=== PATIENT | male | born 1950 | race Caucasian/White ===

== ENCOUNTER 2021-07-16 09:13 | Observation (INO) | payer MEDICARE ==
[~2021-07-16] VITALS: Ht 177.8 cm; Wt 133.1 kg
[~2021-07-16 09:13] MED LIST: ACET500T68 PO; ACETAMINOPHEN 500 MG TABLET PO PRN; ASPI-630 PO; GABAPENTIN 300 MG CAPSULE. PO PRN; HYDR-2761 PO; HYDROmorphone 2 MG/ML VIAL IVP PRN; IV RINGERS,LACTATED 1000ML 1,000 ML IV SCH; LOSA1TAB25 PO; MORPHINE SULFATE 2 MG/ML INJ. IVP PRN; NAPR220T70 PO; PROCHLORPERAZINE 10 MG/2 ML VIAL. IVP PRN; SERT50TA PO; TRANEXAMIC ACID 1,000 MG in IV NS 50ML -- 1ST BAG INJ ONE; TRANEXAMIC ACID 1,000 MG in IV NS 50ML -- 2ND BAG INJ ONE; TV=100ml MORPHINE 5 MG, KETOROLAC 30 MG, ROPIVacaine 0.5% PF 60 ML, EPINEPH... INT ART ONE; ceFAZolin SODIUM 3 GM in IV D5W 100 ML IV PRN; fentaNYL PF VIAL 100 MCG/2 ML VIAL IVP PRN
[2021-07-16 09:54] VITALS: BP 158/67
[2021-07-16] MEDS ORDERED: MIDAZOLAM HCL/PF 2 MG/2 ML VIAL. ONE (10:09)
[2021-07-16] MEDS ORDERED: BUPIVACAINE MPF 0.5% 30 ML VIAL. ONE (10:10)
[2021-07-16] MEDS ORDERED: DEXAMETHASONE SOD PHOS 4 MG/ML VIAL ONE (10:27)
[2021-07-16] MEDS ORDERED: LIDOCAINE 2% PF 5 ML VIAL. ONE (10:27)
[2021-07-16] MEDS ORDERED: PROPOFOL 10 MG/ML (20ML) VIAL. IV ONE (10:27)
[2021-07-16] MEDS ORDERED: ROCURONIUM 50 MG/5 ML VIAL. ONE (10:28)
[2021-07-16] MEDS ORDERED: fentaNYL PF VIAL 100 MCG/2 ML VIAL ONE ×2 (10:56→14:14)
[2021-07-16] MEDS ORDERED: PHENYLEPHRINE in 0.9% NACL PF 1 MG/10 ML SYRINGE. IV ONE (12:01)
[2021-07-16] MEDS ORDERED: ePHEDrine PF IN SALINE 50 MG/10 ML SYRINGE. IV ONE (12:28)
[2021-07-16] MEDS ORDERED: ONDANSETRON PF 4 MG/2 ML VIAL. ONE (12:54)
[2021-07-16] MEDS ORDERED: NEOSTIGMINE METHYLSULFATE 5 MG/5 ML SYRINGE. ONE (12:54)
[2021-07-16] MEDS ORDERED: VANCOMYCIN 1 GM VIAL. ONE (13:10)
[2021-07-16] MEDS ORDERED: MORPHINE SULFATE 2 MG/ML INJ. ONE (14:14)
[2021-07-16] MEDS: IV NORMAL SALINE 1000ML BAG 1,000 ML IV SCH (14:15)
[2021-07-16] MEDS ORDERED: 0.9 % SODIUM CHLORIDE 10 ML DISP.SYRIN. IV PRN (14:15)
[2021-07-16] MEDS ORDERED: ZOLPIDEM 5 MG TABLET. PO PRN (14:15)
[2021-07-16] MEDS ORDERED: DEXTROSE 50% 25 GM / 50ML DISP.SYRIN. IV PRN (14:15)
[2021-07-16] MEDS ORDERED: oxyCODONE/APAP 5/325 1 TAB TABLET PO PRN (14:15)
[2021-07-16] MEDS ORDERED: traMADol 50 MG TABLET PO PRN (14:15)
[2021-07-16] MEDS ORDERED: PROCHLORPERAZINE 5 MG TABLET. PO PRN (14:15)
[2021-07-16] MEDS ORDERED: CALCIUM CARBONATE 500 MG TAB.CHEW PO PRN (14:15)
[2021-07-16] MEDS ORDERED: NALOXONE 0.4 MG/ML VIAL. IV PRN (14:15)
[2021-07-16] MEDS ORDERED: oxyCODONE/APAP 7.5/325 1 TAB TABLET PO PRN (14:15)
[2021-07-16] MEDS ORDERED: ACETAMINOPHEN 325 MG TABLET. PO PRN (14:15)
[2021-07-16] MEDS: fentaNYL PF VIAL 100 MCG/2 ML VIAL IVP PRN ×2 (14:25→14:52)
[2021-07-16] MEDS: MORPHINE SULFATE 2 MG/ML INJ. IVP PRN ×3 (14:30→17:48)
--- NOTE | 2021-07-16 14:30 | PDOC4 ---
Operative Note Operative Note Date of surgery: 07/16/2021 Preoperative diagnosis: Displaced four-part intra-articular right proximal humerus fracture, minimally displaced right radial neck fracture Postoperative diagnosis: Same with head splitting four-part intra-articular right proximal humerus fracture and good stability of radial neck fracture Operative procedure: Right reverse shoulder arthroplasty for fracture, open treatment of right radial neck fracture Surgeon: Eladia Director Of Optimization: Douglas Luna wet process miller head assistant Anesthesia General plus scalene block Estimated blood loss: 100 cc Complications: None Operative indications: Please see my orthopedic clinic note for detailed operative indications and note that we covered the severity of the fracture the plan of reverse shoulder arthroplasty as I do not expect the fracture to be amenable to preservation of the humeral head. We had talked about risk benefits postoperative course of reverse shoulder arthroplasty including the possibility of infection instability nerve or blood vessel damage limited motion medical other anesthetic complications among others. We also discussed the possibility of exploration and possible fixation of radial head replacement of the radial head fracture of his right elbow. All his questions were answered he wishes to proceed with surgical evaluation and treatment having given informed consent Operative text: Patient was identified procedure verified patient placed in the supine position on the operating table. After adequate amounts of general anesthesia plus a pre-existing scalene block were obtained he was placed in the beachchair position all bony prominences were well-padded and the right upper extremity was prepped and draped in standard sterile fashion using the spider arm ontiveros. After timeout was performed patient procedure identified and verified deltopectoral approach was carried out cephalic vein taken laterally bleeding points controlled by electrocautery and he was noted to have significa nt comminution with a head splitting fracture and a small intact fragment of the greater tuberosity with some rotator cuff insertion present. The devascularized fragments of the humeral head were removed glenoid was exposed capsular release carried out and a guidewire placed low centrally drilled and reamed back to bleeding bony tissue and a Rosa trabecular metal standard baseplate with a 15 mm stem was placed and screws were placed into the scapular spine as well as to the base of the coracoid with excellent fixation and locked in place. A 40 mm glenosphere was then impacted into place and reaming carried out to accommodate 170 mm stem by 12 mm diameter which gave good stability. Trial fitting of a stem verified good alignment and a trabecular metal 12 x 170 mm stem was cemented in about 10 degrees version and then trial fit with a 12 mm spacer. 12 mm stacked height was reproduced then by a 9 mm spacer and +3 polyethylene which were preassembled on the back table and tapped in place to engage the Juarez taper and reduced. The attached portion of the greater tuberosity was sutured to the lesser tuberosity fragment and soft tissues with #2 max braid suture obtaining excellent alignment. There irrigation carried out with dilute Betadine solution and normal saline solution. 1 g vancomycin was placed in the joint and fascia closure accomplished with running Vicryl suture subcutaneous closure with Vicryl suture and skin closure with rob. Attention was then turned to the radial neck fracture where a lateral approach was taken to the proximal radius dividing through the extensor mechanism and allowing access to the radial head and neck. Satisfactory open reduction was carried out and the radial neck was noted to be stable after reduction open with full pronation and supination. I elected at this point to forego further fixation and irrigation and closure was accomplished with running Vicryl suture and skin closure with rob. Sterile dressings were then applied patient was placed in a sling and returned to [facility] room in stable condition having tolerated procedure well. Douglas mclain assist was present for the procedure and assisted in patient positioning prepping draping retraction closure and dressings MARY RIVAS MD Jul 16, 2021 14:30
[2021-07-16] MEDS ORDERED: NEOMY/BACITR/POLYMYXIN OINT PACKET. TP ONE ×2 (14:49→15:15)
--- NOTE | 2021-07-16 15:12 | RAD ---
Exam: Right shoulder 2 views INDICATION: Postop TECHNIQUE: AP and outlet views of the right shoulder Comparisons: 07/11/2021 FINDINGS: Right reverse shoulder arthroplasty changes skin rob are seen overlying the shoulder. There is a fracture deformity at the humeral neck again seen. No periprosthetic lucency is seen. IMPRESSION: Shoulder arthroplasty changes as described above Electronically signed by: Florentino Reyes MD (07/16/2021 3:10 PM) SARATH
[2021-07-16] MEDS: HYDROcodone/APAP 10/325 1 TAB TABLET PO PRN ×2 (17:20→23:29)
[2021-07-16] MEDS: FERROUS SULFATE 325 MG TABLET. PO SCH (18:00)
[2021-07-16 18:56] VITALS: BP 169/78
[2021-07-16 19:00] VITALS: BP 144/62
[2021-07-16] MEDS: IV DEXTROSE 5 %-0.45 % NACL 1,000 ML IV SCH (19:09)
[2021-07-16] MEDS: ceFAZolin SODIUM 3 GM in IV DEXTROSE 5% 100ML 100 ML IV SCH (19:10)
[2021-07-16 23:00] VITALS: BP 158/75
[2021-07-17] MEDS: IV DEXTROSE 5 %-0.45 % NACL 1,000 ML IV SCH ×2 (00:15→09:33)
[2021-07-17] MEDS: ceFAZolin SODIUM 3 GM in IV DEXTROSE 5% 100ML 100 ML IV SCH ×2 (00:20→06:00)
[2021-07-17 03:00] VITALS: BP 160/61
[2021-07-17] MEDS ORDERED: MAGNESIUM HYDROXIDE 2,400 MG/30 ML ORAL.SUSP. PO PRN (06:00)
[2021-07-17 07:00] VITALS: BP 156/46
[2021-07-17] MEDS: FERROUS SULFATE 325 MG TABLET. PO SCH (08:06)
[2021-07-17] MEDS: HYDROcodone/APAP 10/325 1 TAB TABLET PO PRN ×3 (08:06→14:43)
[2021-07-17] MEDS: HYDROmorphone 2 MG/ML VIAL IV PRN ×3 (08:08→14:43)
[2021-07-17] MEDS ORDERED: SENNOSIDES/DOCUSATE 8.6/50MG TABLET. PO SCH (09:00)
[2021-07-17] MEDS ORDERED: MULTIVITAMIN with MINERAL TABLET. PO SCH (09:00)
[2021-07-17] MEDS: IV NORMAL SALINE 1000ML BAG 1,000 ML IV SCH (09:33)
[2021-07-17] MEDS ORDERED: hydroCHLOROthiazide 12.5 MG CAPSULE PO SCH (10:00)
[2021-07-17] MEDS ORDERED: LOSARTAN POTASSIUM 50 MG TABLET. PO SCH (10:00)
[2021-07-17 11:00] VITALS: BP 139/62
[2021-07-17] MEDS ORDERED: HYDR-2769 PO (13:41)
--- NOTE | 2021-07-17 13:44 | DISCH ---
DISCHARGE INSTRUCTIONS Condition on Discharge Condition on Discharge: Stable Activity After Discharge Activity Instructions for Disc: Other, see below (May do fine motor use such as eating writing typing no heavy lifting pushing or pulling, no reaching behind back for 2 months postoperatively) Weight Bearing Status after Di: Non weight bearing Diet after Discharge Diet after Discharge: Regular Wound Incision Care Wound/Incision Care: Ice to area for comfort, Do not change dressing (Report if dressing is saturated) Community/Resources/Services Services at Discharge: PT EVALUATE & TREAT (Home exercises of gentle motion pronation supination of wrist and elbow as tolerated and gentle grasping, physical therapy to start after follow-up visit) Contacting the after DC Call your doctor for: Concerns you may have Follow-Up Follow up with: Dr. Montilla or Farzad 10 days MARY MONTILLA MD Jul 17, 2021 13:44
--- NOTE | 2021-07-17 14:25 | DS ---
DATE OF DISCHARGE: 07/17/2021 ORTHOPEDIC DISCHARGE SUMMARY PRINCIPAL DIAGNOSES: 1. A 4-part right proximal humerus fracture, status post reverse shoulder arthroplasty. 2. Open treatment of right radial head fracture. DISPOSITION: Home with self-care. DISPOSITION MEDICATIONS: Include Sabael 10/325 one p.o. q.4 hours p.r.n. pain, dispense #60. Stop previous Tylenol, naproxen and lower dose of hydrocodone. Continue aspirin, losartan, hydrochlorothiazide and sertraline. ACTIVITIES: Fine motor use including gentle grasping of the hand, eating, writing, typing and similar activities. Pronation and supination of the elbow. No reaching around the back until 2 months postoperatively. Sling for comfort, may remove for gentle motion. Report any redness, drainage, fever, chills or other uncontrolled pain or other problems. Follow up with Dr. Montilla or Farzad, 10 days. No physical therapy to start until postoperative check. BRIEF DESCRIPTION OF HOSPITAL COURSE: The patient underwent uncomplicated reverse shoulder arthroplasty on the right and open treatment of radial neck fracture maintenance. He was medically stable postoperatively. Any numbness due to the interscalene block has resolved. Pain is well controlled with hydrocodone and he was discharged home in stable condition. JOSI DR: Solo TID: [id number]
[2021-07-17] MEDS ORDERED: BISACODYL 10 MG SUPP.RECT. PR PRN (16:00)
[2021-07-17] MEDS ORDERED: SERTRALINE 50 MG TABLET. PO SCH (21:00)
== END 2021-07-17 15:10 | disposition home or self-care (01) ==
LOC: SURG 09:13 → 4 NORTH 14:13
PROVIDERS: ADMIT Orthopaedic Surgery; ATTEND Orthopaedic Surgery
DX: S42.291A Other displaced fracture of upper end of right humerus, initial encounter for closed fracture (principal); S52.131A Displaced fracture of neck of right radius, initial encounter for closed fracture; W18.39XA Other fall on same level, initial encounter; Y93.89 Activity, other specified; Y92.89 Other specified places as the place of occurrence of the external cause; Y99.8 Other external cause status; Z96.619 Presence of unspecified artificial shoulder joint
CPT/HCPCS: 23470; 23655; 36415; 73030; 86850; 86900; 86901; 87641; 96365; 96366; 96375; 96376; 97110; 97116; 97162; A4565; A4928; A4930; A6223; A6253; A6402; C1713; C1776; G0378; J0171; J0690; J1100; J1170; J1885; J2250; J2270; J2370; J2405; J2704; J2710; J2795; J3010; J3370; J3490; J7042; J7060; A4322; G0379

== ENCOUNTER 2021-09-03 06:10 | Day surgery (SDC) | payer MEDICARE ==
[~2021-09-03] VITALS: Ht 175.3 cm; Wt 131.8 kg
[~2021-09-03 06:10] MED LIST changes: -ACETAMINOPHEN 500 MG TABLET PO PRN; -GABAPENTIN 300 MG CAPSULE. PO PRN; +HYDR-2769 PO; -HYDROmorphone 2 MG/ML VIAL IVP PRN; -IV RINGERS,LACTATED 1000ML 1,000 ML IV SCH; -MORPHINE SULFATE 2 MG/ML INJ. IVP PRN; -TRANEXAMIC ACID 1,000 MG in IV NS 50ML -- 1ST BAG INJ ONE; -TRANEXAMIC ACID 1,000 MG in IV NS 50ML -- 2ND BAG INJ ONE; -TV=100ml MORPHINE 5 MG, KETOROLAC 30 MG, ROPIVacaine 0.5% PF 60 ML, EPINEPH... INT ART ONE; -ceFAZolin SODIUM 3 GM in IV D5W 100 ML IV PRN; +ceFAZolin SODIUM 3 GM in IV DEXTROSE 5% 100ML 100 ML IV PRN
[2021-09-03] MEDS ORDERED: POTA10TA12 PO (06:31)
[2021-09-03] MEDS ORDERED: FURO20TA3 PO (06:31)
[2021-09-03] MEDS ORDERED: PROP20TA PO (06:31)
[2021-09-03 06:38] VITALS: BP 151/66
[2021-09-03] MEDS: IV RINGERS,LACTATED 1000ML 1,000 ML IV SCH ×2 (06:54→10:28)
[2021-09-03] MEDS ORDERED: PROPOFOL 10 MG/ML (20ML) VIAL. IV ONE (07:17)
[2021-09-03] MEDS ORDERED: LIDOCAINE 2% PF 5 ML VIAL. ONE (07:17)
[2021-09-03] MEDS ORDERED: ROCURONIUM 50 MG/5 ML VIAL. ONE (07:17)
[2021-09-03] MEDS ORDERED: fentaNYL PF VIAL 100 MCG/2 ML VIAL ONE (07:17)
[2021-09-03] MEDS ORDERED: VANCOMYCIN 1 GM VIAL. ONE (07:34)
[2021-09-03] MEDS ORDERED: LIDOCAINE 1% PF 2 ML VIAL. ONE (07:35)
[2021-09-03] MEDS ORDERED: ROPIVacaine 0.5% PF 20 ML VIAL. ONE ×2 (07:35→09:24)
[2021-09-03 07:36] LABS: CALCIUM 9.1 mg/dL (8.5-10.1); GFR 73.7; POTASSIUM 3.8 mmol/L (3.5-5.1)
[2021-09-03] MEDS ORDERED: MIDAZOLAM HCL/PF 2 MG/2 ML VIAL. ONE (07:42)
[2021-09-03] MEDS ORDERED: SUCCINYLCHOLINE 200 MG/10 ML VIAL. ONE (08:38)
[2021-09-03] MEDS ORDERED: DEXAMETHASONE SOD PHOS 4 MG/ML VIAL ONE (08:39)
[2021-09-03] MEDS ORDERED: ONDANSETRON PF 4 MG/2 ML VIAL. ONE (08:39)
[2021-09-03] MEDS ORDERED: SEVOFLURANE 61 TO 120 MINUTES. IH ONE (08:55)
[2021-09-03] MEDS ORDERED: HYDROmorphone 2 MG/ML VIAL ONE ×2 (08:55→10:33)
[2021-09-03] MEDS ORDERED: GLYCOPYRROLATE 1 MG/5 ML VIAL. ONE (09:30)
[2021-09-03] MEDS ORDERED: NEOSTIGMINE METHYLSULFATE 5 MG/5 ML SYRINGE. ONE (09:31)
[2021-09-03] MEDS ORDERED: MORPHINE SULFATE 2 MG/ML INJ. ONE ×2 (10:23→11:14)
[2021-09-03] MEDS: MORPHINE SULFATE 2 MG/ML INJ. IVP PRN ×3 (10:28→11:24)
[2021-09-03] MEDS: HYDROmorphone 2 MG/ML VIAL IVP PRN ×4 (10:36→11:12)
[2021-09-03 11:18] VITALS: BP 182/83
[2021-09-03] MEDS ORDERED: HYDR-2769 PO (11:18)
--- NOTE | 2021-09-03 11:23 | DISCH ---
DISCHARGE INSTRUCTIONS Condition on Discharge Condition on Discharge: Stable Activity After Discharge Activity Instructions for Disc: Other, see below (avoid reachimg around behind back for 2 months postop) Weight Bearing Status after Di: Partial weight bearing Diet after Discharge Diet after Discharge: Regular Wound Incision Care Wound/Incision Care: Ice to area for comfort, Do not change dressing (Maintain jose dressing and call if saturated, otherwise when suction machine stops discard suction box and cut tail of dressing and tape over to maintain seal) Community/Resources/Services Services at Discharge: PT EVALUATE & TREAT (Reverse shoulder protocol) Contacting the after DC Call your doctor for: Concerns you may have Follow-Up Follow up with: Dr. Montilla or Farzad 10 days MARY MONTILLA MD Sep 03, 2021 11:23
[2021-09-03] MEDS ORDERED: HYDROcodone/APAP 10/325 1 TAB TABLET PO ONE (11:30)
--- NOTE | 2021-09-03 18:46 | PDOC4 ---
Operative Note Operative Note Date of surgery: 09/03/2021 Preoperative diagnosis: Right shoulder dislocation following reverse shoulder arthroplasty for fracture Postoperative diagnosis: Same with large nonhealed tuberosity fragment Operative procedure: Open reduction and revision of polyethylene/spacer and excision of posteriorly located tuberosity bony fragment Surgeon: Eladia Computer Systems Administrator: Douglas mclain assist Anesthesia: General plus scalene block Estimated blood loss: 300 cc Complications: None Operative indications: Patient underwent reverse shoulder arthroplasty for a four-part head splitting proximal humerus fracture and noted a postop episode where the shoulder did not feel right. He is not sure if he rolled over in bed or exactly what instigated at but on follow-up to the clinic was noted to have an anterior dislocation and I noted the tuberosity fragment to be nonhealed and retracted posteriorly. I went over with him the likely need for open reduction and assessment of the overall stability, potential treatment of the tuberosity fragment and the potential of polyethylene and spacer revision. We talked through complications including the possibility of infection nerve or blood vessel damage bleeding continued pain instability medical or other anesthetic complications among others. All his questions were answered and he agrees to proceed with surgical evaluation and treatment. It was noted that preoperative labs were obtained to check his potassium as he was on a double dose of Lasix from his primary care physician but did not necessarily have recent labs checking on the effects of that dose. As his electrolyte values were satisfactory we proceeded along with planned surgery. Operative text: Patient was identified procedure verified patient placed in the supine position on the operating table. After adequate amounts of general anesthesia plus a pre-existing scalene block were obtained he was placed in the T-max headrest in beachchair position all bony prominences were well-padded and the right shoulder was prepped and draped in standard sterile fashion. After timeout was performed patient procedure identified and verified a deltopectoral approach was carried out to the right shoulder and he was in fact found to have an anterior shoulder dislocation with the glenosphere and humeral components solidly fixed in good position. The greater tuberosity fragment had not healed and was retracted posteriorly and scarred down in a position in proximity to the posterior aspect of the glenosphere where it was preventing a reduction of the existing components. I removed the polyethylene and the 9 mm spacer without difficulty from the humeral component and carefully excised the tuberosity fragment from the underlying tissue and expose the glenosphere adequately to allow a reduction. Trial fitting was carried out with various combinations and I settled on the previous 9 mm metal spacer with a +3 retentive 40 mm polyethylene, which was a change from the spacer and standard +3 polyethylene that was previously placed. Excellent stability was noted throughout his range of motion and there was no evidence of any type of instability. I concluded that the tuberosity fragment must have migrated posteriorly and provided a fulc rum to dislocate the shoulder and prevent it from relocating. Trial components were removed shoulder was irrigated with bactisure followed by 1 L of normal saline solution. A 9 mm metal spacer and +340 mm retentive polyethylene were impacted into place and the shoulder reduced and found to have equivalent stability as trialing. Excellent range of motion. Bleeding points controlled by electrocautery further irrigation carried out with dilute Betadine solution followed by normal saline solution and pulse lavage 1 g vancomycin was placed in the joint and fascia was closed with running Vicryl suture. Subcutaneous closure with buried Vicryl suture skin closure subcuticular with a jose dressing patient was returned to recovery room in stable condition having tolerated procedure well. Douglas suarez was present for the procedure assisted in patient positioning prepping draping retraction closure and dressings MARY RIVAS MD Sep 03, 2021 18:46
== END 2021-09-03 12:08 | disposition home or self-care (01) ==
LOC: SURG 06:10
PROVIDERS: ATTEND Orthopaedic Surgery
DX: S43.084A Other dislocation of right shoulder joint, initial encounter (principal); I11.0 Hypertensive heart disease with heart failure; I50.9 Heart failure, unspecified; M19.90 Unspecified osteoarthritis, unspecified site; K21.9 Gastro-esophageal reflux disease without esophagitis; G47.30 Sleep apnea, unspecified; F32.9 Major depressive disorder, single episode, unspecified; Z79.899 Other long term (current) drug therapy; Z98.890 Other specified postprocedural states; X58.XXXA Exposure to other specified factors, initial encounter; Y93.89 Activity, other specified; Y92.89 Other specified places as the place of occurrence of the external cause; Y99.8 Other external cause status
CPT/HCPCS: 23473; 36415; 64415; 80048; A4565; A4928; A4930; A6550; C1776; J0330; J1100; J1170; J2250; J2270; J2405; J2704; J2710; J2795; J3010; J3370; J3490; A4322

== ENCOUNTER → 2021-10-11 | Outpatient (CLI) | payer MEDICARE ==
[~2021-10-11] MED LIST changes: +FURO20TA3 PO; +POTA10TA12 PO; -PROCHLORPERAZINE 10 MG/2 ML VIAL. IVP PRN; +PROP20TA PO; -ceFAZolin SODIUM 3 GM in IV DEXTROSE 5% 100ML 100 ML IV PRN; -fentaNYL PF VIAL 100 MCG/2 ML VIAL IVP PRN
--- NOTE | 2021-10-11 09:40 | RAD ---
MR#: [id number] Date of Study: 10/11/2021 Ordering Physician: AARON MARTINEZ, Referring Physician: AARON MARTINEZ, Tech: Veronica Parker RDMS, RVT, RTR APPROVED REPORT Patient Location : OUT-PATIENT Indications Venous Insufficiency Findings Grayscale images of bilateral greater and lesser saphenous veins was grossly normal without any evide nce of thrombus. Spectral waveform and color duplex analysis was performed. The right greater saphe nous vein measured 7.4 mm at the saphenofemoral junction and did not show any significant reflux. Th e left greater saphenous vein measured 7.6 mm at the saphenofemoral junction and did not show any sig nificant reflux. The right and left lesser saphenous veins measured 3.7 mm and 2.5 mm at the sapheno us popliteal junctions respectively and did not show any significant reflux. Critical Notification Critical Value: No <Conclusion> No significant venous reflux was noted in bilateral greater or lesser saphenous veins. Signed by : Aaron Martinez, Electronically Approved : 10/11/2021 09:39:47
--- NOTE | 2021-10-11 16:52 | CARD ---
MR#: [id number] Date of Study: 10/11/2021 Ordering Physician: AARON MC, Referring Physician: AARON MC, Tech: Veronica Palmer [facility] APPROVED REPORT EXAM: Two-dimensional and M-mode echocardiogram with Doppler and color Doppler. Other Information Quality : AverageHR: 53bpm INDICATION Cardiac Disease: CAD Congestive Heart Failure RISK FACTORS Hypertension 2D DIMENSIONS Left Atrium(2D)4.1 (1.6-4.0cm)IVSd1.4 (0.7-1.1cm) Aortic Root(2D)2.9 (2.0-3.7cm)LVDd6.1 (3.9-5.9cm) LVOT Diameter2.1 (1.8-2.4cm)PWd1.2 (0.7-1.1cm) LVDs3.8 (2.5-4.0cm)FS (%) 36.9 % SV121.4 ml Aortic Valve AoV Peak Cortes.129.0cm/sAoV VTI32.3cm AO Peak GR.6.7mmHgLVOT Peak Cortes.99.5cm/s LVOT VTI 25.33cmAO Mean GR.4mmHg ARLEEN (VMAX)1.42rr3QBD (VTI)2.70cm2 Mitral Valve MV E Aojetaju98.3cm/sMV E Peak Gr.71mmHg MV DECEL [id number] A Fwfyiwlp30.0cm/s MV E Mean Gr.1mmHgMV [id number] E/A Ratio1.3MVA (PHT)3.63cm2 TDI E/Lateral E'7.4E/Medial E'11.5 Pulmonary Valve PV Peak Cohfjjzk85.9cm/sPV Peak Grad.3mmHg Tricuspid Valve TR P. Mjuiitua614ft/sRAP [id number] TR Peak Gr.22mmHg Pulmonary Vein S1 Getokmik10.7cm/sD2 Yccgelxq52.3cm/s PVa [id number] LEFT VENTRICLE The Left Ventricle is borderline dilated. There is normal left ventricular wall thickness. The left v entricular systolic function is low normal to mildly decreased. The Ejection Fraction is 45-50%. Ther e is mild global hypokinesis of the left ventricle. RIGHT VENTRICLE The right ventricle is normal size. The right ventricular systolic function is normal. ATRIA The left atrium size is normal. The right atrium size is normal. AORTIC VALVE The aortic valve is normal in structure and function. Doppler and Color Flow revealed no significant aortic regurgitation. There is no significant aortic valvular stenosis. Calculated aortic valve area is 2.58 cm2 with maximum pressure gradient of 8 mmHg and mean pressure gradient of 4 mmHg. MITRAL VALVE The mitral valve is normal in structure and function. There is no evidence of mitral valve prolapse. There is no mitral valve stenosis. Doppler and Color-flow revealed trace to mild mitral regurgitation . TRICUSPID VALVE The tricuspid valve is normal in structure and function. Doppler and Color Flow revealed trace tricus pid regurgitation with an estimated PAP of 25 mmHg. There is no tricuspid valve stenosis. PULMONIC VALVE The pulmonic valve is not well visualized. Doppler and Color Flow revealed trace pulmonic valvular re gurgitation. GREAT VESSELS The aortic root is normal in size. The ascending aorta is normal in size. The IVC is normal in size a nd collapses >50% with inspiration. PERICARDIAL EFFUSION There is no evidence of significant pericardial effusion. Critical Notification Critical Value: No <Conclusion> The Left Ventricle is borderline dilated. The left ventricular systolic function is low normal to mildly decreased. The Ejection Fraction is 45-50%. There is mild global hypokinesis of the left ventricle. Doppler and Color Flow revealed no significant aortic regurgitation. There is no significant aortic valvular stenosis. Doppler and Color-flow revealed trace to mild mitral regurgitation. Doppler and Color Flow revealed trace tricuspid regurgitation with an estimated PAP of 25 mmHg. Signed by : Kyle Sesay MD Electronically Approved : 10/11/2021 16:51:42
== END ==
LOC: US 08:46
PROVIDERS: ATTEND Internal Medicine Cardiovascular Disease
DX: I34.0 Nonrheumatic mitral (valve) insufficiency (principal); I87.2 Venous insufficiency (chronic) (peripheral); I50.33 Acute on chronic diastolic (congestive) heart failure; I25.10 Atherosclerotic heart disease of native coronary artery without angina pectoris
CPT/HCPCS: 93306; 93970

== ENCOUNTER 2022-03-11 08:18 | Outpatient (CLI) | payer MEDICARE ==
[~2022-03-11] VITALS: Ht 175.3 cm; Wt 121.8 kg
[2022-03-11] VITALS (13 sets, daily range): BP systolic 94–134; BP diastolic 43–69
[2022-03-11 08:50] LABS: HEMATOCRIT 41.4 % (39.0-53.0); RED BLOOD COUNT 4.23 x10^6/uL (4.30-5.70); RED CELL DISTRIBUTION WIDTH 14.3 % (11.5-14.5); WHITE BLOOD COUNT 5.6 x10^3/uL (4.0-11.0)
[2022-03-11 09:01] LABS: CALCIUM 9.3 mg/dL (8.5-10.1); CREATININE 0.8 mg/dL (0.7-1.3); PROTHROMBIN TIME PATIENT 13.3 SEC (11.7-14.0)
[2022-03-11] MEDS ORDERED: LIDOCAINE 1% PF 2 ML VIAL. ONE (09:05)
[2022-03-11] MEDS ORDERED: IODIXANOL 320 MG/ML 100 ML VIAL. ONE (09:05)
[2022-03-11] MEDS ORDERED: MIDAZOLAM HCL/PF 2 MG/2 ML VIAL. ONE (09:14)
[2022-03-11] MEDS ORDERED: NITROGLYCERIN 200 MCG/2 ML SYRINGE FOR CATH/VASC LAB. ONE (09:14)
[2022-03-11] MEDS ORDERED: HEPARIN for IV BOLUS 10,000 UNIT/10 ML VIAL. ONE (09:14)
[2022-03-11] MEDS ORDERED: VERAPAMIL 5 MG/2 ML VIAL. ONE (09:14)
[2022-03-11] MEDS ORDERED: fentaNYL PF VIAL 100 MCG/2 ML VIAL ONE (09:14)
[2022-03-11] MEDS ORDERED: VERAPAMIL 5 MG/2 ML VIAL. IART ONE (09:15)
[2022-03-11] MEDS ORDERED: fentaNYL PF VIAL 100 MCG/2 ML VIAL IV ONE (09:15)
[2022-03-11] MEDS ORDERED: LIDOCAINE 1% PF 2 ML VIAL. INJ ONE (09:15)
[2022-03-11] MEDS ORDERED: HEPARIN for IV BOLUS 10,000 UNIT/10 ML VIAL. IART ONE (09:15)
[2022-03-11] MEDS ORDERED: NITROGLYCERIN 200 MCG/2 ML SYRINGE FOR CATH/VASC LAB. IART ONE (09:15)
[2022-03-11] MEDS ORDERED: MIDAZOLAM HCL/PF 2 MG/2 ML VIAL. IV ONE (09:15)
[2022-03-11] MEDS ORDERED: IODIXANOL 320 MG/ML 100 ML VIAL. IART ONE (09:15)
[2022-03-11] MEDS ORDERED: CONTRAST GIVEN. MC PRN (09:45)
--- NOTE | 2022-03-11 09:59 | CARD ---
MR#: [id number] Date of Study: 03/11/2022 Ordering Physician: AARON MARTINEZ, Referring Physician: AARON MARTINEZ, Tech: RT Anu(R) APPROVED REPORT Technologist: RT Anu(R) Nurse: Daphne Wilkinson RN Procedure(s) performed: Left heart catheterization and selective coronary angiography via right trans radial approach FL TIME: 1.8 MIN DOSE: 91 GYCM2 CONTRAST: 97 ML MODERATE SEDATION: 20 MINS INDICATION The indication(s) include : Acute on chronic combined systolic and diastolic heart failure, positive stress test. [facility] Clinical Frailty Scale [facility] Clinical Frailty Scale: Mildly Frail Heart Failure Heart Failure: Yes If Yes, Newly Diagnosed: No If Yes, HF Type: Diastolic Systolic If Yes, NYHA Class: Class II CASE TECHNIQUE IV conscious sedation was used throughout procedure with appropriate monitoring and was performed in the presence of a registered nurse who was an independent trained observer other than the physician p erforming the procedure. During this case, Fluoroscopy and low osmolar contrast were used for imaging . Specimen(s) Removed: No Estimated Blood loss: 15 cc's. PROCEDURE NARRATIVE After explaining the risks, benefits and alternative options, informed consent was obtained from jono ent. Patient was brought to the cardiac Ergonomics Consultant and right wrist was prepped and draped in the usual fashion after confirming a positive modified Gopal's test. Arterial access was obtained in the rig t radial artery and a 6 [place] sheath was inserted. 6 [place] Vic catheter was used to perform jason ective angiography of the left and right coronary arteries. LVEDP and transaortic gradients were albin sured. Left ventriculography was not performed since recent 2D echo showed EF 45 to 50%. Patient to lerated the procedure well. Hemostasis was achieved using TR band. There were no immediate complica tions. The following findings were noted. FINDINGS 1. Hemodynamics: Left ventricular end-diastolic pressure of 18 mmHg. No pullback gradient across th e aortic valve. 2. Coronary angiography: a. The left main coronary artery arose from the left sinus of Valsalva, gave rise to the left anteri or descending and left circumflex arteries and did not show any significant stenosis. b. The left anterior descending artery showed 70% stenosis in the proximal segment, 90% stenosis in the midsegment followed by 100% heavily calcified chronic total occlusion. There is distal reconstit ution from left to left collaterals. The first diagonal branch did not show any significant stenosis . The second diagonal branch showed 90% proximal segment stenosis. c. The left circumflex artery showed calcified chronic total occlusion in the midsegment with distal reconstitution of obtuse marginal branches from left to left and right to left collaterals. d. The right coronary artery was a large and dominant vessel arising from the right sinus of Valsalv a that showed 70% stenosis in the midsegment and 90% stenosis in the proximal segment of the posterio r descending branch. Conclusion Severe three-vessel coronary artery disease as described above Recommendations Cardiothoracic surgery team consultation for possible coronary artery bypass surgery Cardiovascular risk factor modification Signed by : Aaron Martinez, Electronically Approved : 03/11/2022 09:59:06
[2022-03-11] MEDS ORDERED: ASPI-630 PO (12:29)
[2022-03-11] MEDS ORDERED: ATOR40TA PO (12:29)
[2022-03-11] MEDS ORDERED: NITR0.4T22 SL (12:29)
[2022-03-11] MEDS ORDERED: NITROGLYCERIN SUBLINGUAL 0.4 MG BOTTLE OF 25. SL PRN (12:30)
[2022-03-11] MEDS ORDERED: ASPIRIN 325 MG TABLET PO ONE (12:30)
--- NOTE | 2022-03-11 12:38 | CARD ---
MR#: [id number] Date of Study: 03/11/2022 Ordering Physician: AARON MARTINEZ, Referring Physician: AARON MARTINEZ, Tech: DARIUS YEBOAH RDCS,T APPROVED REPORT EXAM: Two-dimensional and M-mode echocardiogram with Doppler and color Doppler. Other Information Quality : AverageHR: 95bpm Rhythm : NSR INDICATION Pre-Op Cardiac Disease: CAD 2D DIMENSIONS Left Atrium(2D)3.9 (1.6-4.0cm)IVSd1.4 (0.7-1.1cm) LVDd4.4 (3.9-5.9cm)LVOT Diameter2.0 (1.8-2.4cm) PWd1.3 (0.7-1.1cm)LVDs4.0 (2.5-4.0cm) FS (%) 10.6 %SV20.7 ml Aortic Valve AoV Peak Cortes.117.7cm/Kami Peak GR.5.6mmHg LVOT Peak Cortes.84.5cm/sAVA (VMAX)2.15cm2 Mitral Valve MV E Ehictpsq76.6cm/sMV DECEL [id number] MV A Msfeamef36.5cm/sE/A Ratio0.9 Pulmonary Valve PV Peak Czbkzkqp35.7cm/s Tricuspid Valve TR P. Irmagmzx531aq/sRAP XQTJZGDG1bfSh TR Peak Gr.54pvHcCGED33svGv Pulmonary Vein S1 Dmgxlzjx78.5cm/sD2 Huvrrurr66.3cm/s PVa gyphdtkc660xzrp LEFT VENTRICLE The left ventricle is normal size. There is normal left ventricular wall thickness. Left ventricular systolic function is normal. The ejection fraction is estimated at 55-60%. There is normal LV segment al wall motion. Transmitral Doppler flow pattern is Grade I-abnormal relaxation pattern. No left vent ricle thrombus noted on this study. There is no ventricular septal defect visualized. There is no lef t ventricular aneurysm. There is no mass noted in the left ventricle. RIGHT VENTRICLE The right ventricle is normal size. There is normal right ventricular wall thickness. The right ventr icular systolic function is normal. ATRIA The left atrium size is normal. The right atrium size is normal. The interatrial septum is intact wit h no evidence for an atrial septal defect or patent foramen ovale as noted on 2-D or Doppler imaging. AORTIC VALVE The aortic valve is normal in structure and function. Doppler and Color Flow revealed no significant aortic regurgitation. There is no significant aortic valvular stenosis. There is no aortic valvular v egetation. MITRAL VALVE The mitral valve is normal in structure and function. There is no evidence of mitral valve prolapse. There is no mitral valve stenosis. Doppler and Color-flow revealed mild mitral regurgitation. TRICUSPID VALVE The tricuspid valve is normal in structure and function. Doppler and Color Flow revealed trace to mil d tricuspid regurgitation. There is no tricuspid valve prolapse or vegetation. There is no tricuspid valve stenosis. PULMONIC VALVE The pulmonary valve is normal in structure and function. There is no pulmonic valvular regurgitation. There is no pulmonic valvular stenosis. GREAT VESSELS The aortic root is normal in size. The ascending aorta is normal in size. The pulmonary artery is nor mal. The IVC is normal in size and collapses >50% with inspiration. PERICARDIAL EFFUSION There is no pleural effusion. There is no evidence of significant pericardial effusion. Critical Notification Critical Value: No <Conclusion> Left ventricular systolic function is normal. The ejection fraction is estimated at 55-60%. There is normal LV segmental wall motion. Transmitral Doppler flow pattern is Grade I-abnormal relaxation pattern. Mild mitral regurgitation. Trace to mild tricuspid regurgitation. There is no evidence of significant pericardial effusion. Signed by : Aaron Martinez, Electronically Approved : 03/11/2022 12:37:47
[2022-03-11] MEDS ORDERED: ASPIRIN 325 MG TABLET ONE (12:44)
--- NOTE | 2022-03-11 13:13 | NUR ---
Discharge Note: CLARICE HORNER Discharge instructions and discharge home medications reviewed with Family Member and a copy given. All questions have been answered and understanding verbalized. Encouraged pt to not exert self and decrease stress. Dressing site to R wrist dry and intact, armboard in place. The following instructions and handouts were given: CAD, CABG, sedation, nitro, atorvastatin, radial site care Discontinued lines and drains: Peripheral IV intact. Patient discharged to Home or Self Care with Family Member via Wheelchair ESTER [facility]ARRIS Addendum: 03/11/22 at 1441 by CHEMA KHAN RN Amended: Links added.
[2022-03-11] MEDS ORDERED: ATORVASTATIN CALCIUM 40 MG TABLET. PO SCH (21:00)
[2022-03-12] MEDS ORDERED: ASPIRIN ENTERIC COATED 81 MG TABLET.DR. PO SCH (08:00)
== END 2022-03-11 13:13 | disposition home or self-care (01) ==
LOC: CCL 08:18
PROVIDERS: ATTEND Internal Medicine Cardiovascular Disease
DX: I11.0 Hypertensive heart disease with heart failure (principal); I50.43 Acute on chronic combined systolic (congestive) and diastolic (congestive) heart failure; R94.39 Abnormal result of other cardiovascular function study; I25.10 Atherosclerotic heart disease of native coronary artery without angina pectoris; E11.9 Type 2 diabetes mellitus without complications; K21.9 Gastro-esophageal reflux disease without esophagitis; G47.30 Sleep apnea, unspecified; M19.90 Unspecified osteoarthritis, unspecified site; F41.9 Anxiety disorder, unspecified; F32.9 Major depressive disorder, single episode, unspecified; Z87.891 Personal history of nicotine dependence; Z79.82 Long term (current) use of aspirin; Z79.84 Long term (current) use of oral hypoglycemic drugs; Z79.899 Other long term (current) drug therapy; Z98.890 Other specified postprocedural states
CPT/HCPCS: 36415; 80048; 85027; 85610; 93306; 93458; 99152; C1769; C1894; J1644; J2250; J3010; J3490; Q9967; C8929